=== PATIENT | male | born 1960 | race Caucasian/White ===

== ENCOUNTER → 2016-06-06 | Outpatient (CLI) | payer OTHER ==
--- NOTE | 2016-06-06 09:43 | RAD ---
Indication pain. AP oblique and lateral views of the right hand were obtained. There is some degenerative change at the second and third metacarpal phalangeal joints. There is slight radiocarpal narrowing. An acute bony finding is not seen. Soft tissue swelling at several PIP joints is noted IMPRESSION: Mild degenerative change. No acute bony finding seen
== END | disposition home or self-care (01) ==
LOC: DXRAD 09:04
PROVIDERS: ATTEND Orthopaedic Surgery
DX: M19.041 Primary osteoarthritis, right hand (principal)
CPT/HCPCS: 73130